=== PATIENT | male | born 1965 | race Caucasian/White ===

== ENCOUNTER → 2022-04-17 | Outpatient (CLI) | payer MEDICARE ==
[~2022-04-17] MED LIST: FISH1CAP49 PO; ROSU10TA22 PO
== END | disposition home or self-care (01) ==
LOC: RAH 14:39
PROVIDERS: ATTEND Obstetrics & Gynecology
DX: I86.1 Scrotal varices (principal); N50.811 Right testicular pain
CPT/HCPCS: 76870

== ENCOUNTER 2024-03-16 06:29 | Day surgery (SDC) | payer MEDICARE ==
[2024-03-09 11:02] LABS: BASOPHILS # (AUTO) 0.05 K/uL (0.00-0.20); BASOPHILS % (AUTO) 0.6 % (0.0-5.0); EOSINOPHILS # (AUTO) 0.15 K/uL (0.00-0.70); EOSINOPHILS % (AUTO) 1.9 % (0.0-8.0); IMMATURE GRANULOCYTE ABSOLUTE 0.12 K/uL (0-1); LYMPHOCYTES # (AUTO) 1.4 K/uL (1.0-4.8); LYMPHOCYTES % (AUTO) 17.5 % (21.0-51.0); MEAN CORPUSCULAR HEMOGLOBIN 31.5 pg (27.0-33.0); MEAN CORPUSCULAR VOLUME 92.5 fL (79-99); MONOCYTES # (AUTO) 0.7 K/uL (0.1-1.0); MONOCYTES % (AUTO) 8.9 % (3.0-13.0); NEUTROPHILS # (AUTO) 5.5 K/uL (1.8-7.7); NEUTROPHILS % (AUTO) 69.6 % (40.0-77.0); PLATELET COUNT (AUTO) 141 K/uL (130-400); RED BLOOD CELL COUNT(AUTO) 4.54 MIL/uL (4.50-6.20); RED CELL DISTRIBUTION WIDTH 13.1 % (11.0-15.5); WHITE BLOOD COUNT (AUTO) 7.9 K/uL (4.8-10.8)
[2024-03-09 11:09] LABS: CREATININE 1.1 mg/dL (0.5-1.3)
[2024-03-09 11:33] VITALS: BP 129/80; PULSE 83; RESP 18; TEMP 97.2
[2024-03-09 11:39] LABS: INR 1.09 (0.85-1.15); PROTHROMBIN TIME 11.7 SEC (9.6-11.6)
[2024-03-09 11:40] LABS: PARTIAL THROMBOPLASTIN TIME 28.3 SEC (26.3-35.5)
[2024-03-16] VITALS (13 sets, daily range): BP systolic 122–147; BP diastolic 72–97; PULSE 70–96; RESP 13–19; TEMP 97.3–98
[~2024-03-16] VITALS: Ht 185.4 cm; Wt 80.8 kg
[~2024-03-16 06:29] MED LIST changes: +ATOR10 PO; -FISH1CAP49 PO; -ROSU10TA22 PO
[2024-03-16] MEDS ORDERED: GLYCOPYRROLATE 0.2 MG/ML 5 ML VIAL ONE (07:25)
[2024-03-16] MEDS ORDERED: LIDOCAINE HCL MPF 1% 5ML VIAL ONE (07:25)
[2024-03-16] MEDS ORDERED: dexaMETHasone SOD PHOSPHATE 10MG/ML 1ML VIAL ONE (07:25)
[2024-03-16] MEDS ORDERED: proPOFol 10 MG/ML 20ML VIAL IV ONE (07:25)
[2024-03-16] MEDS ORDERED: ketOROlac 30MG VIAL (30MG/ML) ONE (07:25)
[2024-03-16] MEDS ORDERED: ondanSETRON 4MG INJ ONE (07:25)
[2024-03-16] MEDS ORDERED: NEOSTIGMINE METHYLSULFATE 1MG/ML IV ONE (07:26)
[2024-03-16] MEDS ORDERED: MIDAZOLAM HCL 1 MG/ML 2ML VIAL ONE (07:26)
[2024-03-16] MEDS ORDERED: rocuRONium bROMide 10MG/1ML 5ML VL ONE (07:26)
[2024-03-16] MEDS ORDERED: FENTanyl CITRate PF 50 MCG/1 ML 2ML VIAL ONE (07:26)
[2024-03-16] MEDS ORDERED: ROPivacaine 0.5% 5MG/ML 30ML ONE (07:27)
[2024-03-16] MEDS: LACTATED RINGERS 1000ML 1,000 ML IV ONE (07:30)
[2024-03-16] MEDS: ceFAZolin SODIUM 2 GM VIAL ONE (07:31)
[2024-03-16] MEDS ORDERED: BUPIvacaine/PF 0.25% 30ML VIAL IJ ONE (08:01)
[2024-03-16] MEDS ORDERED: LIDOCAINE HCL 1% 20 ML VIAL ONE (09:00)
[2024-03-16] MEDS ORDERED: ePHEDrine SULFate 50 MG/ML AMPULE ONE (12:17)
[2024-03-16] MEDS: acetaMINOPHEN 100 ML ONE (13:50)
--- NOTE | 2024-03-16 17:15 | OP ---
Operative Note: DATE OF PROCEDURE: 03/16/24 SURGEON: NOELLE PATEL MD WASH TEST CHECKER: [] ANESTHESIA: [] General ANESTHESIOLOGIST/ASSOCIATE SOFTWARE ENGINEER: [] PREOPERATIVE DIAGNOSIS: [] Bilateral inguinal hernia POSTOPERATIVE DIAGNOSIS: [] The same SYNOPSIS: [] PROCEDURE: [] Robotic bilateral inguinal hernia repair ESTIMATED BLOOD LOSS: [] Minimal INDICATIONS: [] DESCRIPTION OF PROCEDURE: [] With the patient prepped in usual fashion and a Gandhi catheter placed we inserted the Veress needle in the left upper quadrant abdomen insufflated. Supraumbilical incision was created and a millimeter da Lior trocar was inserted. Under direct vision I remove the needle and I placed 2 da Lior trochars 1 in each the side of the abdomen. Then we placed the patient in Trendelenburg and I docked the robot. I went to the console and observe a bilateral inguinal hernia. This seems to be of the direct type. Using cautery I scored the peritoneum on the right side and I brought him down bluntly. I exposed the Miquel's ligament and the indirect area I reduce a large hernia sac preserving the spermatic cords and visualizing the vas deferens and spermatic cords. The hernia was reduced without any problems. After observing the myopectineal line and the Miquel's ligament I placed a 3 D MAX MId mid mesh on the right side. This was a large one. I placed it over the Miquel's l igament covering couple centimeters below and the indirect space. The sac with the lipoma was placed over the mesh. I did the same on the left side and then placed a large mesh. I then closed the peritoneum with a 2 oh V-Loc. No anchoring of the mesh was necessary. We did a closure continues and dropped the pressure to 8 cm. After this was done I remove the needle and I remove all the trochars under direct vision. The skin was closed with 4-0 Monocryl and Dermabond. We placed 20 cc NOELLE PATEL MD Mar 16, 2024 17:15
== END 2024-03-16 14:35 | disposition home or self-care (01) ==
LOC: DAH 06:29
PROVIDERS: ATTEND Surgery
DX: K40.20 Bilateral inguinal hernia, without obstruction or gangrene, not specified as recurrent (principal); E78.5 Hyperlipidemia, unspecified; Z79.01 Long term (current) use of anticoagulants; Z98.890 Other specified postprocedural states; Z79.899 Other long term (current) drug therapy
CPT/HCPCS: 80048; 85025; 85610; 85730; 36415; 49650; 64488; A6260; A4663; J7120 ×2; A4344; A4215 ×2; J3010; J1100; J3490 ×4; J2250; J2704; J2405; J1885; J2710; J2795; J0690; C1781 ×2; A4930; A4223; A4222; A4221; A4450; A4600; C1751; J0665

== ENCOUNTER → 2024-06-02 | Outpatient (CLI) | payer MEDICARE ==
--- NOTE | 2024-06-02 16:13 | HMCIMG ---
US SCROTUM & CONTENTS REASON: cyst of epididymis COMPARISON: None TECHNIQUE: Routine scrotal sonogram was performed. Vascular Doppler evaluation was performed with spectral analysis and color flow imaging. FINDINGS: Right testicle is 5.3 x 2.0 x 3.7 cm, left 4.7 x 2.1 x 4.0 cm. Both testicles are homogeneous without focal mass and with normal and symmetrical appearing blood flow. The right epididymis appears normal. The left epididymis has 2 epididymal head cysts, one 3 mm and 1 8 mm. There is normal-appearing blood flow. There is a minimal hydrocele. There is also a borderline varicocele, largest vein 3.3 mm. IMPRESSION: 1. Borderline varicocele on the left, largest vein 3.3 mm, there is also a minimal left hydrocele. 2. Otherwise negative exam.
== END | disposition home or self-care (01) ==
LOC: RAH 14:58
PROVIDERS: ATTEND Family Medicine
DX: N50.3 Cyst of epididymis (principal); N43.2 Other hydrocele
CPT/HCPCS: 76870